=== PATIENT | female | born 1975 | race Two or more races ===

== ENCOUNTER 2021-06-12 08:51 | Outpatient (REF) | payer OTHER, SELFPAY ==
[2021-06-12 10:33] LABS: MANUAL DIFF FLAG NO
[2021-06-12 10:46] LABS: Basophils Percent Auto 0.2 % (0-2); Eosinophils Absolute Auto 0.1 X10*3/uL (0.0-0.4); Eosinophils Percent Auto 2.2 % (0-4); Hematocrit 40.5 % (37-47); Hemoglobin 13.5 g/dl (12.0-16.0); Imm Gran Abs Auto 0.02 X10*3/uL (0.00-0.03); Imm Gran Pct Auto 0.3 % (0.0-0.4); Lymphocytes Absolute Auto 1.9 X10*3/uL (1.2-4.9); Lymphocytes Percent Auto 32.9 % (20-40); Mean Corpuscular HGB Conc 33.3 g/dl (31.0-35.0); Mean Corpuscular Hemoglobin 30.5 pg (27.0-33.0); Mean Corpuscular Volume 91.4 fL (80-98); Mean Platelet Volume 11.6 fL (9.4-12.3); Monocytes Absolute Auto 0.3 X10*3/uL (0.1-1.2); Monocytes Percent Auto 5.7 % (2-11); Neutrophils Absolute Auto 3.4 X10*3/uL (2.0-8.3); Neutrophils Percent Auto 58.7 % (45-73); Platelet Count 244 X10*3/uL (160-400); Red Blood Count 4.43 X10*6/uL (4.20-5.50); Red Cell Distribution Width 12.6 % (11.0-16.0); White Blood Count 5.8 X10*3/uL (4.8-10.8)
[2021-06-12 11:12] LABS: Alanine Aminotransferase 23 U/L (0-31); Albumin Level 4.2 g/dL (3.5-5.0); Alkaline Phosphatase 87 U/L (39-117); Anion Gap 10 (12-20); Aspartate Amino Transferase 18 U/L (5-31); Bilirubin Total 1.2 mg/dL (0.0-1.0); Blood Urea Nitrogen 10 mg/dL (9-16); Calcium 8.8 mg/dL (8.4-10.2); Carbon Dioxide 25 mmol/L (22-29); Chloride 107 mmol/L (96-108); Cholesterol 129 mg/dL; Estimated Glomerular Filt Rate > 60; Glucose Fasting 103 mg/dL (60-99); HDL Cholesterol 35 mg/dL; LDL Cholesterol Calculated 82 mg/dl; Sodium 138 mmol/L (135-145); Total Protein 6.7 g/dL (6.5-8.0); Triglycerides 62 mg/dL
[2021-06-12 11:33] LABS: Thyroid Stimulating Hormone 0.02 uIU/mL (0.32-4.0)
[2021-06-16 11:46] LABS: Vitamin D 25-OH, D2 <4 ng/mL; Vitamin D 25-OH, D3 24 ng/mL; Vitamin D 25-OH, Total 24 ng/mL (30-100)
== END 2021-06-12 08:52 | disposition home or self-care (01) ==
LOC: HO.LAB 08:51
PROVIDERS: PCP Internal Medicine; Visit Provider Internal Medicine
DX: E55.9 Vitamin D deficiency, unspecified (principal); E78.5 Hyperlipidemia, unspecified; D64.9 Anemia, unspecified; E03.9 Hypothyroidism, unspecified; E66.9 Obesity, unspecified
CPT/HCPCS: 36415; 80053; 80061; 82306; 84443; 85025

== ENCOUNTER 2021-07-25 10:46 | Outpatient (REF) | payer OTHER, SELFPAY ==
[2021-07-26 14:02] LABS: CT PCR NOT DETECTED (Not Detect.); NG PCR NOT DETECTED (Not Detect.)
[2021-07-27 10:54] LABS: BV Int Neg Control Negative (Negative); BV Int Pos Control Positive (Positive)
[2021-08-03 05:11] LABS: HPV 16 RNA NOT DETECTED (NOT DETECTED); HPV mRNA E6/E7 rflx Detected (Not Detected)
== END 2021-07-25 10:47 | disposition home or self-care (01) ==
LOC: HO.LAB 10:46
PROVIDERS: Visit Provider Advanced Practice Midwife
DX: Z20.2 Contact with and (suspected) exposure to infections with a predominantly sexual mode of transmission (principal); C53.9 Malignant neoplasm of cervix uteri, unspecified; Z01.419 Encounter for gynecological examination (general) (routine) without abnormal findings; E66.9 Obesity, unspecified; Z87.42 Personal history of other diseases of the female genital tract; Z79.899 Other long term (current) drug therapy
CPT/HCPCS: 87480; 87491; 87510; 87591; 87624; 87625; 87660; 88142

== ENCOUNTER 2021-08-02 14:40 | Outpatient (REF) | payer OTHER, SELFPAY ==
[2021-08-02 15:49] LABS: Thyroid Stimulating Hormone 2.02 uIU/mL (0.32-4.0)
[2021-08-04 17:47] LABS: Thyroglobulin Antibodies 3 IU/mL (< or = 1)
[2021-08-04 21:27] LABS: Thyroid Peroxidase Antibodies 2 IU/mL (<9)
== END 2021-08-02 14:41 | disposition home or self-care (01) ==
LOC: HO.LAB 14:40
PROVIDERS: PCP Internal Medicine; Visit Provider Internal Medicine
DX: E03.9 Hypothyroidism, unspecified (principal)
CPT/HCPCS: 36415; 84443; 86376; 86800

== ENCOUNTER 2021-08-22 08:42 | Outpatient (REF) | payer OTHER, SELFPAY | END 2021-08-22 08:43 | disposition home or self-care (01) | LOC: HO.LAB 08:42 | PROVIDERS: PCP Internal Medicine; Visit Provider Obstetrics & Gynecology | DX: R87.610 Atypical squamous cells of undetermined significance on cytologic smear of cervix (ASC-US) (principal); R87.810 Cervical high risk human papillomavirus (HPV) DNA test positive | CPT/HCPCS: 57454; 88300; 88305 ==

== ENCOUNTER → 2021-09-06 11:38 | Outpatient (BNVA) | payer OTHER, SELFPAY | PROVIDERS: PCP Internal Medicine; Visit Provider Obstetrics & Gynecology | DX: N87.0 Mild cervical dysplasia (principal) | CPT/HCPCS: 99212 ==

== ENCOUNTER 2021-09-13 07:51 | Outpatient (REF) | payer OTHER, SELFPAY ==
[2021-09-13 09:06] LABS: HCG Quantitative < 2 mIU/mL
== END 2021-09-13 07:52 | disposition home or self-care (01) ==
LOC: HO.LAB 07:51
PROVIDERS: PCP Internal Medicine; Visit Provider Internal Medicine
DX: N92.6 Irregular menstruation, unspecified (principal)
CPT/HCPCS: 36415; 84702

== ENCOUNTER → 2021-09-20 10:44 | Outpatient (BNVA) | payer OTHER, SELFPAY | PROVIDERS: Visit Provider Obstetrics & Gynecology | DX: N92.6 Irregular menstruation, unspecified (principal) | CPT/HCPCS: Q3014 ==

== ENCOUNTER → 2021-10-17 11:41 | Outpatient (BNVA) | payer OTHER, SELFPAY | PROVIDERS: PCP Internal Medicine; Visit Provider Obstetrics & Gynecology | DX: N87.0 Mild cervical dysplasia (principal) | CPT/HCPCS: 99212 ==

== ENCOUNTER 2021-10-20 08:45 | Day surgery (SDC) | payer OTHER, SELFPAY ==
--- NOTE | 2021-10-19 10:21 | P.CONAN_ITS ---
Documented by User: Amanda Chambers NP 10/19/21 10:22 HPI - Anesthesia Eval Consult details Narrative: 46yo F for LEEP Cone with post ECC PMFSH Active Problems Active Problems: All Active Problems (Updated 10/17/21 @ 11:51 by Sudeep Morrison MD) Adult ADHD (Acute) Well woman exam with routine gynecological exam (Acute) Obesity (BMI 35.0-39.9 without comorbidity) (Acute) Hx of abnormal cervical Pap smear (Acute) ASCUS with positive high risk HPV cervical (Acute) Dysplasia of cervix, low grade (RAMEZ 1) (Acute) Missed period (Acute) Physical exam (Acute) Bipolar 1 disorder, depressed, mild (Acute) Blurry vision (Acute) Screening for cervical cancer (Acute) Tennis elbow (Acute) Obese (Acute) Depression with anxiety (Acute) Mild asthma (Acute) Hypothyroidism (Acute) Past Medical History Medical History ADHD Bipolar 1 disorder, depressed, mild Blurry vision Depression with anxiety Fibromyalgia Hypothyroidism Mild asthma Missed period Obese Physical exam Screening for cervical cancer Tennis elbow Family History Family History Mother Diabetes Asthma Hypertension Mental health disorder Father Hypertension Asthma Surgical History Surgical History Cubital tunnel syndrome on left Social History Social History Housing: House Housing Other:: living with boyfriend Alcohol intake: current Alcohol intake frequency: holidays/special occasions only Alcohol type: beer Patient Tobacco Use Status: Never used Tobacco Tobacco use type: Cigarette e-Cigarette/Vaping Use: Never Used Second Hand Smoke Exposure: No Use of substances other than those prescribed or required for medical reasons: No Are you DNR?: No Advance Directives: No Advance Directives Information Provided: Yes service: No Current occupational status: disabled Meds Allergies Allergy/AdvReac Type Severity Reaction Status Date / Time No Known Allergies Allergy Verified 10/13/21 15:46 Home Medications Medication Instructions Recorded Confirmed Last Taken Type albuterol sulfate 2 puff 03/30/21 10/13/21 Unknown History 90 mcg/actuation INHALATION Q4-6H PRN aerosol inhaler dextroamphetamine 30 mg PO DAILY 07/25/21 10/13/21 Unknown History -amphetamine 30 mg tablet (Adderall) fluticasone INHALATION 10/13/21 Unknown History propionate 250 mcg/actuation blister powder for inhalation (Flovent Diskus) Vitamin D2 10/20/21 10/20/21 Unknown History cyclobenzaprine 10 mg PO BEDTIME 10/20/21 10/20/21 Unknown History 10 mg tablet Exam Exam Date and Time: October 19, 2021 1021 Pertinent Lab Results Pertinent Lab Results: Laboratory Tests 06/12/21 06/12/21 09:20 09:20 WBC 5.8 Hgb 13.5 Hct 40.5 Plt Count 244 Sodium 138 Potassium 4.0 Chloride 107 Carbon Dioxide 25 BUN 10 Creatinine 0.70 Assessment and Plan Assessment Anesthesia Assessment: Chart Reviewed Documented by User: Amelia Thomas MD 10/20/21 09:45 PMFSH Past Medical History Medical History ADHD Bipolar 1 disorder, depressed, mild Blurry vision Depression with anxiety Fibromyalgia Hypothyroidism Mild asthma Missed period Obese Physical exam Screening for cervical cancer Tennis elbow Family History Family History Mother Diabetes Asthma Hypertension Mental health disorder Father Hypertension Asthma Family history of problems with anesthesia: No Surgical History Surgical History Cubital tunnel syndrome on left History of Problems with Anesthesia: No Social History Social History Housing: House Housing Other:: living with boyfriend Alcohol intake: current Alcohol intake frequency: holidays/special occasions only Alcohol type: beer Patient Tobacco Use Status: Never used Tobacco Tobacco use type: Cigarette e-Cigarette/Vaping Use: Never Used Second Hand Smoke Exposure: No Use of substances other than those prescribed or required for medical reasons: No Are you DNR?: No Advance Directives: No Advance Directives Information Provided: Yes service: No Current occupational status: disabled Meds Allergies Allergy/AdvReac Type Severity Reaction Status Date / Time No Known Allergies Allergy Verified 10/13/21 15:46 Home Medications Medication Instructions Recorded Confirmed Last Taken Type albuterol sulfate 2 puff 03/30/21 10/13/21 Unknown History 90 mcg/actuation INHALATION Q4-6H PRN aerosol inhaler dextroamphetamine 30 mg PO DAILY 07/25/21 10/13/21 Unknown History -amphetamine 30 mg tablet (Adderall) fluticasone INHALATION 10/13/21 Unknown History propionate 250 mcg/actuation blister powder for inhalation (Flovent Diskus) Vitamin D2 10/20/21 10/20/21 Unknown History cyclobenzaprine 10 mg PO BEDTIME 10/20/21 10/20/21 Unknown History 10 mg tablet Exam Airway Mallampati Class: III TM Dist: >3cm Neck ROM: Full Assessment and Plan Assessment Anesthesia Assessment: Anesthesia Plan Discussed Final Anesthetic Review Family History of Problems with Anesthesia: No History of Problems with Anesthesia: No NPO: Yes ASA Class: II Final Preanesthetic Review: No Changes in Pt Med Stat, Meds/Allgs Chart Reviewed, Consent Obtained/Reviewed and Anes Risks/Benef Reviewed Patient Risk: Intermediate Procedure Risk: Low Anesthetic Plan Anesthetic Plan: GA Disposition: Standard PACU
[2021-10-20 09:08] VITALS: BMI 35.1
[2021-10-20 09:15] LABS: UPreg QC Valid YES; Urine Pregnancy NEGATIVE (NEGATIVE)
[2021-10-20 09:25] VITALS: BP 131/79; PULSE 88; RESP 16; TEMP 36.6; O2SAT 97
[2021-10-20] MEDS: Lactated Ringers 1,000 ML 100 ML IVCONT (09:31)
--- NOTE | 2021-10-20 10:16 | MHC.SHP ---
Pre-Procedural Eval Section A Date of Service: 10/20/21 The patient is an INPATIENT: No Changes since office visit: No Cold of Flu in the past 2 weeks, No New Medical Problems, No Changes in Medication and No Patient answered all questions The History & Physical has been completed within 30 days and I have reviewed it.: Yes Section B Chief Complaint: yuri 1 Allergies: Allergies Allergy/AdvReac Type Severity Reaction Status Date / Time No Known Allergies Allergy Verified 10/13/21 15:46 Plan Diagnosis/Plan: Unchanged I have reviewed the history and physical and performed a pertinent physical examination on my patient. No changes have occurred unless specified.
--- NOTE | 2021-10-20 11:10 | PM.OP ---
Brief Operative Note Date of Service: 10/20/21 Pre-op diagnosis: Persistent RAMEZ 1 with positive ECC Post-op diagnosis: same Procedure: LEEP CONE with post CONE ECC Surgeon: Sudeep Morrison MD Anesthesia: local and other (Paracervical block) Was an [employer] Home [employer] used for this Procedure?: No Estimated blood loss (mL): 0 Pathology: other (Cervical cone, Endocx, Post cone ECC) Condition: stable Disposition: other (Home)
[2021-10-20 11:11] VITALS: BP 103/55; PULSE 82; RESP 18; TEMP 36.6; O2SAT 99
--- NOTE | 2021-10-20 11:11 | W.PM.OPN ---
Operative Note Operative Note Date of Service: 10/20/21 Narrative: Preop diagnosis: Persistent RAMEZ 1 with + ECC Operation: LEEP Cone with post cone ECC Post op diagnosis: same Anesthesia: paracervical block with MAC Complications: none Pathology: Cervical cone with endocervix & post cone RCC QBL: minimal Procedure: The patient was put in the dorsal lithotomy position, was prepped and draped in the usual sterile fashion. A sterile speculum was inserted inside the patient vagina. Using Lugol solution the cervix with Dyed with Lugol solution to identifiy the abnormal demarcating line. 10 cc of Marcaine0.5% with epinephrine were given at 2,4 , 8, and 10 o'clock. Using a medium-size loop wire, the cervical cone was excised followed by the endocervix, and post cone ECC . Hemostasis was assured using cautery and Monsel solution. All instruments were taken out of the patient's vaginal cavity. the patient tolerated the procedure well and was discharged home with the following instructions: call if temperature is above 100.4, vaginal bleeding, abdominal pain or nausea or vomiting. Follow-up in the office in 2 weeks for postop visit
[2021-10-20 11:16] VITALS: BP 99/58; PULSE 83; RESP 18; O2SAT 99
[2021-10-20 11:20] VITALS: BP 109/58; PULSE 79; RESP 16; O2SAT 99
[2021-10-20 11:25] VITALS: BP 108/53; PULSE 83; RESP 16; O2SAT 99
[2021-10-20 11:40] VITALS: BP 114/55; PULSE 79; RESP 18; TEMP 36.6; O2SAT 98
== END 2021-10-20 12:23 | disposition home or self-care (01) ==
PROVIDERS: Nurse Practitioner; PCP Internal Medicine; Visit Provider Obstetrics & Gynecology
PROC: 0UBC7ZZ Excision of Cervix, Via Natural or Artificial Opening (ICD-10-PCS; CPT 57522; principal; 2021-10-20 10:40)
DX: N87.0 Mild cervical dysplasia (principal); J45.909 Unspecified asthma, uncomplicated; E11.9 Type 2 diabetes mellitus without complications; I10 Essential (primary) hypertension; E03.9 Hypothyroidism, unspecified; F31.9 Bipolar disorder, unspecified; Z79.51 Long term (current) use of inhaled steroids; Z79.899 Other long term (current) drug therapy
CPT/HCPCS: 57522; 81025; 88305; 88307; 88342; 88360; J1100; J2250; J2405; J3010

== ENCOUNTER → 2021-10-26 10:53 | Outpatient (BNVA) | payer OTHER, SELFPAY | PROVIDERS: PCP Internal Medicine; Visit Provider Obstetrics & Gynecology | DX: C53.9 Malignant neoplasm of cervix uteri, unspecified (principal) | CPT/HCPCS: Q3014 ==

== ENCOUNTER 2021-11-08 07:54 | Outpatient (REF) | payer OTHER, SELFPAY ==
[2021-11-08 09:21] LABS: Thyroid Stimulating Hormone 4.32 uIU/mL (0.32-4.0)
== END 2021-11-08 07:55 | disposition home or self-care (01) ==
LOC: HO.LAB 07:54
PROVIDERS: PCP Internal Medicine; Visit Provider Internal Medicine
DX: E03.9 Hypothyroidism, unspecified (principal)
CPT/HCPCS: 36415; 84443

== ENCOUNTER 2021-12-06 15:44 | Outpatient (REF) | payer OTHER, SELFPAY ==
[2021-12-06 16:50] LABS: Thyroid Stimulating Hormone 4.54 uIU/mL (0.32-4.0)
[2021-12-10 13:56] LABS: Vitamin D 25-OH, D2 <4 ng/mL; Vitamin D 25-OH, D3 33 ng/mL; Vitamin D 25-OH, Total 33 ng/mL (30-100)
== END 2021-12-06 15:45 | disposition home or self-care (01) ==
LOC: HO.LAB 15:44
PROVIDERS: PCP Internal Medicine; Visit Provider Internal Medicine
DX: E03.9 Hypothyroidism, unspecified (principal); E55.9 Vitamin D deficiency, unspecified
CPT/HCPCS: 36415; 82306; 84443

== ENCOUNTER → 2021-12-26 08:43 | Outpatient (BNVA) | payer OTHER, SELFPAY | PROVIDERS: PCP Internal Medicine; Visit Provider Nurse Practitioner Family | DX: M25.50 Pain in unspecified joint (principal); M79.7 Fibromyalgia; M79.18 Myalgia, other site; F41.8 Other specified anxiety disorders; F31.31 Bipolar disorder, current episode depressed, mild; F90.9 Attention-deficit hyperactivity disorder, unspecified type; C53.9 Malignant neoplasm of cervix uteri, unspecified | CPT/HCPCS: 99202 ==

== ENCOUNTER → 2022-01-23 14:03 | Outpatient (BNVA) | payer OTHER, SELFPAY | PROVIDERS: PCP Internal Medicine; Visit Provider Nurse Practitioner Family | DX: M25.50 Pain in unspecified joint (principal); M79.7 Fibromyalgia; F41.8 Other specified anxiety disorders; Z90.710 Acquired absence of both cervix and uterus | CPT/HCPCS: Q3014 ==

== ENCOUNTER 2022-01-25 10:27 | Outpatient (REF) | payer OTHER, SELFPAY ==
[2022-01-25 10:52] LABS: MANUAL DIFF FLAG NO
[2022-01-25 12:08] LABS: Basophils Percent Auto 0.5 % (0-2); Eosinophils Absolute Auto 0.4 X10*3/uL (0.0-0.4); Eosinophils Percent Auto 4.7 % (0-4); Hematocrit 36.7 % (37.0-47.0); Hemoglobin 11.8 g/dl (12.0-16.0); Imm Gran Abs Auto 0.03 X10*3/uL (0.00-0.03); Imm Gran Pct Auto 0.4 % (0.0-0.4); Lymphocytes Absolute Auto 2.5 X10*3/uL (1.2-4.9); Lymphocytes Percent Auto 29.6 % (20-40); Mean Corpuscular HGB Conc 32.2 g/dl (31.0-35.0); Mean Corpuscular Volume 87.2 fL (80.0-98.0); Mean Platelet Volume 11.2 fL (9.4-12.3); Monocytes Absolute Auto 0.4 X10*3/uL (0.1-1.2); Monocytes Percent Auto 4.7 % (2-11); Neutrophils Percent Auto 60.1 % (45-73); Platelet Count 242 X10*3/uL (160-400); Red Blood Count 4.21 X10*6/uL (4.20-5.50); Red Cell Distribution Width 13.2 % (11.0-16.0); White Blood Count 8.3 X10*3/uL (4.8-10.8)
[2022-01-25 12:34] LABS: Alanine Aminotransferase 25 U/L (0-31); Albumin Level 4.3 g/dL (3.5-5.0); Alkaline Phosphatase 100 U/L (39-117); Anion Gap 15 (12-20); Aspartate Amino Transferase 19 U/L (5-31); Bilirubin Total 0.7 mg/dL (0.0-1.0); Blood Urea Nitrogen 14 mg/dL (9-16); Calcium 9.6 mg/dL (8.4-10.2); Carbon Dioxide 23 mmol/L (22-29); Chloride 107 mmol/L (96-108); Estimated Glomerular Filt Rate > 60; Glucose Random 142 mg/dL (60-115); Sodium 141 mmol/L (135-145); Total Protein 7.3 g/dL (6.5-8.0)
[2022-01-25 12:42] LABS: Thyroid Stimulating Hormone 4.05 uIU/mL (0.32-4.0)
== END 2022-01-25 10:28 | disposition home or self-care (01) ==
LOC: HO.LAB 10:27
PROVIDERS: PCP Internal Medicine; Visit Provider Nurse Practitioner Family
DX: K21.9 Gastro-esophageal reflux disease without esophagitis (principal); E03.9 Hypothyroidism, unspecified
CPT/HCPCS: 36415; 80053; 84443; 85025

== ENCOUNTER 2022-01-26 10:25 | Outpatient (REF) | payer OTHER, SELFPAY ==
[2022-01-26 11:30] LABS: Estimated Average Glucose 108 mg/dL; Hemoglobin A1c % 5.4 %
== END 2022-01-26 10:26 | disposition home or self-care (01) ==
LOC: HO.LAB 10:25
PROVIDERS: PCP Internal Medicine; Visit Provider Nurse Practitioner Family
DX: R73.09 Other abnormal glucose (principal)
CPT/HCPCS: 36415; 83036

== ENCOUNTER 2022-02-16 10:24 | Outpatient (REF) | payer OTHER, SELFPAY ==
--- NOTE | ~2022-02-16 | MM_ITS ---
EXAMINATION: MM SCREENING DIGITAL BREAST TOMOSYNTHESIS, BILATERAL CLINICAL INFORMATION: Screening. Asymptomatic. The lifetime risk of breast cancer based on the Tyrer-Cuzick Model is 7.4%. COMPARISON: Mammography: None TECHNIQUE: Digital breast tomosynthesis is performed in both the craniocaudal and mediolateral oblique views along with computer-aided detection (CAD). Synthesized 2D images are generated from the tomosynthesis. FINDINGS: The breasts are almost entirely fatty (ACR BI-RADS breast composition Category a). There are no significant masses, abnormal calcifications, or other abnormalities. MM/MM tomosynthesis screening BI IMPRESSION: There are no significant changes from prior study. ASSESSMENT: BI-RADS 1: Negative RECOMMENDATION: Routine annual mammography screening. This patient's information was entered into a reminder system with a target due date for their next mammogram.
== END 2022-02-16 10:25 | disposition home or self-care (01) ==
LOC: HO.MAMMO 10:24
PROVIDERS: PCP Internal Medicine; Visit Provider Internal Medicine
DX: Z12.31 Encounter for screening mammogram for malignant neoplasm of breast (principal)
CPT/HCPCS: 77063; 77067

== ENCOUNTER → 2022-03-22 10:00 | Outpatient (BNVA) | payer OTHER, SELFPAY | PROVIDERS: PCP Internal Medicine; Visit Provider Physician Assistant | DX: K21.9 Gastro-esophageal reflux disease without esophagitis (principal); Z90.710 Acquired absence of both cervix and uterus; Z79.899 Other long term (current) drug therapy | CPT/HCPCS: 99202; 99212 ==

== ENCOUNTER 2022-06-06 12:03 | Outpatient (REF) | payer OTHER, SELFPAY ==
[2022-06-06 12:23] LABS: MANUAL DIFF FLAG NO
[2022-06-06 13:15] LABS: Basophils Percent Auto 0.5 % (0-2); Eosinophils Absolute Auto 0.2 X10*3/uL (0.0-0.4); Eosinophils Percent Auto 1.9 % (0-4); Hematocrit 38.7 % (37.0-47.0); Hemoglobin 12.9 g/dl (12.0-16.0); Imm Gran Abs Auto 0.04 X10*3/uL (0.00-0.03); Imm Gran Pct Auto 0.5 % (0.0-0.4); Lymphocytes Absolute Auto 2.8 X10*3/uL (1.2-4.9); Lymphocytes Percent Auto 31.6 % (20-40); Mean Corpuscular HGB Conc 33.3 g/dl (31.0-35.0); Mean Corpuscular Hemoglobin 28.2 pg (27.0-33.0); Mean Corpuscular Volume 84.7 fL (80.0-98.0); Monocytes Absolute Auto 0.4 X10*3/uL (0.1-1.2); Monocytes Percent Auto 4.8 % (2-11); Neutrophils Absolute Auto 5.4 x10*3/uL (2.0-8.3); Neutrophils Percent Auto 60.7 % (45-73); Platelet Count 266 X10*3/uL (160-400); Red Blood Count 4.57 X10*6/uL (4.20-5.50); Red Cell Distribution Width 13.6 % (11.0-16.0); White Blood Count 8.9 X10*3/uL (4.8-10.8)
[2022-06-06 13:56] LABS: Thyroid Stimulating Hormone 1.47 uIU/mL (0.32-4.0)
== END 2022-06-06 12:04 | disposition home or self-care (01) ==
LOC: HO.LAB 12:03
PROVIDERS: PCP Internal Medicine; Visit Provider Internal Medicine
DX: J45.909 Unspecified asthma, uncomplicated (principal); E03.9 Hypothyroidism, unspecified
CPT/HCPCS: 36415; 84443; 85025